=== PATIENT | male | born 1930 | race Caucasian/White ===

== ENCOUNTER → 2019-02-15 | Emergency (ER) | payer MEDICARE ==
[~2019-02-15] VITALS: Ht 182.9 cm; Wt 80.7 kg
[~2019-02-15] MED LIST: WARFARIN SODIUM5 MG PO
--- NOTE | 2019-02-16 07:15 | EKG ---
[facility] [address] [facility] [place], [place] [address] Signed Atrial-sensed ventricular-paced rhythm Biventricular pacemaker detected Abnormal ECG No previous ECGs available Confirmed by DEONTE ALCAZAR MD ([id number] on 02/16/2019 7:15:23 AM Electronically Signed By: DEONTE ALCAZAR MD 02/16/19 0715 PATIENT NAME: ANIKA HAAS Electrocardiogram DATE OF : [birth year] PHYSICIAN: DEONTE ALCAZAR MD REPORT #: [id number] REPORT IS CONFIDENTIAL AND NOT TO BE RELEASED WITHOUT AUTHORIZATION
== END ==
LOC: ED 19:00
DX: I62.00 Nontraumatic subdural hemorrhage, unspecified (principal); Z79.01 Long term (current) use of anticoagulants
CPT/HCPCS: 70450; 71045; 80053; 84484; 85025; 85610; 85730; 93005; 93010; 96374; 96375; 99291; C9132; J1953; J2405; J7060